=== PATIENT | male | born 1965 | race Caucasian/White ===

== ENCOUNTER 2016-05-19 09:24 | Outpatient (RCR) | payer OTHER ==
[~2016-05-19 09:24] MED LIST: ALLOPURINOL300 MG PO; FLEXERIL 1010 MG/TAB PO; FLOMAX 0.40.4 MG/CAP PO; FLONASE NASAL S16 GM NS; GLUCOPHAGE850 MG/TAB PO; HCTZ 25MG25 MG PO; NORCO 325 MG-51 TAB PO; PERCOCET 325 MG1 TA2 PO; PREVACID SOLUTA30 M2 PO; SIMVASTATIN20 MG PO; ST. JOSEPH81 M2 PO; SYNTHROID 0.0.025 MG PO; THYROID MEDICATION; VENTOLIN0.09 MG IH
== END 2016-05-20 | disposition still patient (30) ==
LOC: WSOH
DX: M25.512 Pain in left shoulder (principal)

== ENCOUNTER 2016-10-27 08:15 | Outpatient (RCR) | payer OTHER | END 2016-12-02 14:10 | disposition still patient (30) | LOC: WSPT 08:15 | DX: Z98.890 Other specified postprocedural states (principal) ==

== ENCOUNTER → 2017-12-16 | Outpatient (CLI) | payer OTHER | LOC: COL.RAD 09:31 | DX: R22.2 Localized swelling, mass and lump, trunk (principal) ==

== ENCOUNTER → 2018-01-05 | Outpatient (CLI) | payer OTHER | LOC: COL.RAD 07:03 | DX: M51.34 Other intervertebral disc degeneration, thoracic region (principal); D17.79 Benign lipomatous neoplasm of other sites ==

== ENCOUNTER → 2019-02-14 | Outpatient (CLI) | payer OTHER ==
[~2019-02-14] VITALS: Ht 182.9 cm; Wt 130.1 kg
[~2019-02-14] MED LIST changes: -ALLOPURINOL300 MG PO; +GLUCOPHAGE XR750 MG PO; +NEURONTIN300 MG/CAP PO; +NEURONTIN600 MG/TAB PO; +PROTONIX 40MG T40 MG PO; -SIMVASTATIN20 MG PO; +SINGULAIR 110 MG/TAB PO; +SYNTHROID0.088 MG/T PO; +ZOCOR 20MG20 MG PO; +ZYLOPRIM 300MG300 MG PO
[2019-02-14 10:20] VITALS: BP 150/94; PULSE 66
[2019-02-14 11:03] VITALS: BP 146/85; PULSE 70
== END ==
LOC: COL.RAD 09:24
DX: E06.3 Autoimmune thyroiditis (principal); E04.1 Nontoxic single thyroid nodule
CPT/HCPCS: 32106

== ENCOUNTER 2020-02-06 08:45 | Outpatient (RCR) | payer OTHER | END 2020-03-06 14:30 | disposition home or self-care (01) | LOC: WSPT 08:45 | DX: M70.41 Prepatellar bursitis, right knee (principal) ==

== ENCOUNTER → 2020-04-22 | Outpatient (CLI) | payer OTHER ==
--- NOTE | 2020-04-21 07:57 | NUR ---
called and lmom with call back number.
[~2020-04-22] VITALS: Ht 182.9 cm; Wt 132.7 kg
[2020-04-22] VITALS (13 sets, daily range): BP systolic 126–161; BP diastolic 84–103; PULSE 71–80
--- NOTE | 2020-04-22 14:10 | NUR ---
Pt to ct per ambulation. Pt positioned in prone position on ct table. Monitors applied.
--- NOTE | 2020-04-22 14:25 | NUR ---
Dr Germain talks with pt regarding procedure.
--- NOTE | 2020-04-22 14:37 | NUR ---
Dr Germain drained 330 mls of tea colored drainage from cyst near kidney.
--- NOTE | 2020-04-22 14:45 | NUR ---
Dr Germain injected 2 mls of blood into cyst site.
== END ==
LOC: COL.RAD 12:40
DX: Q61.01 Congenital single renal cyst (principal)
CPT/HCPCS: J2250; J3010

== ENCOUNTER 2020-06-26 16:07 | Inpatient (IN) | payer OTHER ==
[~2020-06-26] VITALS: Ht 185.4 cm; Wt 128.9 kg
[2020-07-03] VITALS (10 sets, daily range): BP systolic 144–159; BP diastolic 80–95; PULSE 63–80; TEMP 97.3–97.9
[2020-07-03 12:23] LABS: HEMATOCRIT 40.8 % (42.0-52.0); HEMOGLOBIN 13.4 g/dl (13.5-18.0)
--- NOTE | 2020-07-03 12:29 | NUR ---
TO RM 4 AT 1152- ALERT ORIENTED X3, VERBALIZED UNDERSTANDING AND SIGNED CONSENT.
[2020-07-03] MEDS ORDERED: MOBIC15 MG PO (12:35)
--- NOTE | 2020-07-03 18:00 | NUR ---
PATIENT ADMITED INTO ROOM 350 POST OP. A&O. VSS. NO PAIN OR NAUSEA. CONRAD TO DD WITH MOD AMOUNTS OF CLEAR YELLOW URINE. IV FLUIDS INFUSING INTO LEFT HAND IV. HEAD TO TOE ASSESSMENT COMPLETE. DINNER TRAY ORDERED. AT BEDSIDE. ORIENTED TO ROOM. CALL LIGHT IN REACH. COAGULATING BATH MIXER TAKING OVER.
[2020-07-04 00:31] VITALS: BP 134/85; PULSE 66
[2020-07-04 04:02] VITALS: BP 127/72; PULSE 70; TEMP 98.2
--- NOTE | 2020-07-04 08:00 | NUR ---
PATIENT IS A&O. VSS. REPORTS DISCOMFORT IS WELL MANAGED. ABD LAP SITES X4 ARE CD&I AND PROCEDURE MANAGER. ABD IS ROUND, SOFT AND WITH POSITIVE BOWL SOUNDS. NO C/O N/V. LEFT HAND IV TO INT. BREAKFAST TRAY AT BEDSIDE. HEAD TO TOE ASSESSMENT COMPLETE. STUDENT NURSE WORKING WITH PATIENT TODAY, SEE CHARTING. INDEPENDENT IN ROOM. PATIENT HOPING TO DISCHARGE HOME LATER TODAY.
[2020-07-04 08:04] VITALS: BP 133/70; PULSE 79; TEMP 97.8
--- NOTE | 2020-07-04 09:30 | NUR ---
PATIENT HAS VOIDED TWICE SINCE CONRAD DC'D. URINE IS CLEAR YELLOW
--- NOTE | 2020-07-04 11:05 | NUR ---
PATIENT IS DISCHARGING HOME VIA AMBULATORY TO PERSONAL VEHICLE WHERE IS WAITING. GAVE DISCHARGE INSTRUCTIONS AND DISCUSSED F/U APT. ANSWERED QUESTIONS/CONCERNS. STUDENT NURSE DC'D LEFT HAND IV AND COVERED SITE WITH BANDAID. PATIENT IS DRESSED AND PERSONAL BELONGINGS PACKED. PATIENT DISCHARGED.
--- NOTE | 2020-07-04 14:50 | NUR ---
First visit from the market basket maker. No needs right now.
== END 2020-07-04 11:05 | disposition home health service (06) | DRG 661 ==
LOC: INPTSU 07-03 11:46 → SDCO 07-03 14:00 → EDSTATUS 07-03 15:00 → SURG 07-03 15:00
PROVIDERS: Nurse Anesthetist, Certified Registered; ADMIT Urology
PROC: 0TD Urinary System, Extraction (ICD-10-PCS; principal; 2020-07-03 14:00)
DX: N28.1 Cyst of kidney, acquired (principal); Z87.891 Personal history of nicotine dependence; E78.5 Hyperlipidemia, unspecified; E07.9 Disorder of thyroid, unspecified; M10.9 Gout, unspecified; Z87.442 Personal history of urinary calculi
CPT/HCPCS: A4314; J0330; J0360; J0690; J1885; J2250; J2405; J2704; J2795; J3010; J7120

== ENCOUNTER 2022-07-02 07:44 | Day surgery (SDC) | payer BC ==
[~2022-07-02] VITALS: Ht 185.4 cm; Wt 131.8 kg
[~2022-07-02 07:44] MED LIST changes: +MOBIC15 MG PO
[2022-07-02] MEDS ORDERED: ALBUTEROL1.25 MG/3 IH (08:38)
[2022-07-02] MEDS ORDERED: GLUCOTROL 5M5 MG/TAB PO (08:42)
[2022-07-02] MEDS ORDERED: PRINZIDE 12.5 M1 TAB PO (08:43)
[2022-07-02] MEDS ORDERED: SINGULAIR 110 MG/TAB PO (08:43)
[2022-07-02 08:44] VITALS: BP 108/74; PULSE 57; TEMP 96.7
[2022-07-02 09:38] VITALS: BP 102/69; PULSE 56; TEMP 97
[2022-07-02 09:56] VITALS: BP 102/68; PULSE 56
== END 2022-07-02 10:10 | disposition home or self-care (01) ==
LOC: SDCO 07:44
DX: K64.1 Second degree hemorrhoids (principal); K21.9 Gastro-esophageal reflux disease without esophagitis; G47.33 Obstructive sleep apnea (adult) (pediatric); Z87.891 Personal history of nicotine dependence
CPT/HCPCS: J2704